=== PATIENT | male | born 1995 | race Caucasian/White ===

== ENCOUNTER 2024-02-19 08:55 | Outpatient (CLI) | payer SELFPAY | END 2024-02-19 08:56 | disposition home or self-care (01) | LOC: CSHWCC 08:55 | PROVIDERS: ATTEND Nurse Practitioner Family | DX: L03.011 Cellulitis of right finger (principal) ==

== ENCOUNTER 2024-02-19 10:09 | Outpatient (CLI) | payer OTHER | END 2024-02-19 10:10 | disposition home or self-care (01) | LOC: CSHRAD 10:09 | PROVIDERS: ATTEND Nurse Practitioner Family | DX: L03.011 Cellulitis of right finger (principal); M89.9 Disorder of bone, unspecified ==